=== PATIENT | female | born 1965 | race Caucasian/White ===

== ENCOUNTER 2017-09-26 13:34 | Day surgery (SDC) | payer BC ==
[2017-09-26] MEDS ORDERED: MIDAZOLAM 1 MG/ML 2 ML INJ ×2 (17:18)
[2017-09-26] MEDS ORDERED: FENTAnyl 50 MCG/ML VIAL (17:18)
== END 2017-09-26 17:37 | disposition home or self-care (01) ==
LOC: GIL 13:34
DX: Z12.11 Encounter for screening for malignant neoplasm of colon (principal); K64.8 Other hemorrhoids; J45.909 Unspecified asthma, uncomplicated
CPT/HCPCS: 45378